=== PATIENT | female | born 1955 | race Caucasian/White ===

== ENCOUNTER 2021-02-04 07:49 | Outpatient (CLI) | payer OTHER, SELFPAY ==
--- NOTE | ~2021-02-04 | XR_ITS ---
EXAMINATION: XR abdomen/kub 1V INDICATION: Calcium kidney stone TECHNIQUE: Supine views of the abdomen were obtained on 2 radiographs. COMPARISON: None FINDINGS: There is a 1.6 cm stone projecting in the lower pole of the left kidney. No definite additi onal urolithiasis is identified. There are phleboliths of the left pelvis. Spinal fusion is noted L5- S1. The bowel gas pattern is normal. IMPRESSION: 1. Left nephrolithiasis. Reviewed, dictated and finalized at location A. IR ORDER CLERK IMPRESSION: 1. Left nephrolithiasis.
== END 2021-02-04 07:50 | disposition home or self-care (01) ==
PROVIDERS: PCP Family Medicine; Visit Provider Urology
DX: N20.0 Calculus of kidney (principal)
CPT/HCPCS: 74018

== ENCOUNTER 2021-02-05 10:45 | Outpatient (CLI) | payer OTHER, SELFPAY ==
[2021-02-05 12:08] LABS: INR 0.9; Prothrombin Time 11.7 Seconds (11.1-14.7)
[2021-02-05 12:09] LABS: Partial Thromboplastin Time 29.2 SECONDS (22.3-36.8)
== END 2021-02-05 10:46 | disposition home or self-care (01) ==
LOC: ANHSURGERY 10:50
PROVIDERS: PCP Family Medicine; Visit Provider Urology
DX: N20.0 Calculus of kidney (principal); Z01.812 Encounter for preprocedural laboratory examination
CPT/HCPCS: 36415; 85610; 85730

== ENCOUNTER 2021-02-08 03:32 | Day surgery (SDC) | payer OTHER, SELFPAY ==
[2021-02-04 15:52] VITALS: BMI 29.5
--- NOTE | 2021-02-04 15:59 | PC.NURSE ---
Report to the Outpatient Waiting Room, entrance under the green pavilion located off [facility], at time _0800 on date _02/08/21 . OR Time: __1000 . - You and your visitor will be asked a series of questions to screen for COVID 19 for your protection. - A mask is required within the hospital. - Only one visitor is allowed at this time. Patient visitors will be guided where to wait when not with patient. Preoperative COVID Testing Requirements: No COVID Test needed if: (proof is required; if not received patient will have Rapid Test prior to entry) - Patient has received COVID Vaccine at least 14 days prior to procedure date or - Patient has positive COVID test result within last 90 days of surgery date. COVID Test needed if above criteria is not met If not COVID vaccinated a COVID test must be conducted within 72 hours of surgery and patient is asked to isolate self from time of testing until procedure. You will go to the [facility] for your COVID testing. The [facility] site is located at the corner of [address] from [facility]. You will only be called if COVID results are positive and your surgeon may reschedule your elective surgery date. Patients may have clear liquids (water, carbonated beverages, clear teas, apple juice) until 3 hours prior to surgery with a maximum of 20 ounces. - No food from midnight until time of surgery - Infants may have breast milk until 4 hours before surgery, infant formula 6 hours prior to surgery. - Children will be allowed to drink immediately following surgery. If applicable, please bring a bottle or sippy cup to assist with drinking. Juice, water, soda, and popsicles are readily available. For infants on formula, please bring formula the day of surgery. Pacifiers are allowed. Take the following medications with a SIP of water the morning of surgery: ___PAIN PILL IF NEEDED Medications to discontinue per physician ___NONE Date to take last dose Please no make-up, nail nepali, hairspray, perfume, deodorant, or body powder the day of surgery. No jewelry (including any body piercings) or valuables the day of surgery, leave them at home. Please take a shower or bath the night before, or the morning of, surgery with an antibacterial soap. Wear comfortable, loose fitting clothing. Children are encouraged to wear pajamas. - Jewelry must be removed prior to entering the operating room. Rings and piercings that are not removed may be cut off. - The hospital will not accept responsibility for valuables. - Please leave all valuables, including medications, at home the day of surgery. If you are going home after surgery, a licensed charter coach driver must drive you home. - NO public transportation without another adult. - We recommend that an adult stay with you for 24 hours following discharge. - We also recommend that you do not drive, make important decision, drink alcoholic beverages, or take any drugs that were not prescribed by your health care provider for at least 24 hours after your discharge time. For Pediatric surgeries, we recommend two adults accompany the child home (only one inside the building at this time). Follow any additional instructions given to you from your surgeon. Telephone instructions given to __PATIENT and asked if any additional questions and then verbalized understanding. Patient advised to call surgeon office or pre surgery nurse liaison [phone] if any additional questions.
[2021-02-08] VITALS (9 sets, daily range): BP systolic 115–164; BP diastolic 65–97; PULSE 76–95; RESP 12–20; TEMP 36.1; O2SAT 95–100
--- NOTE | ~2021-02-08 | XR_ITS ---
EXAMINATION: XR abdomen/kub 1V INDICATION: Calcium kidney stone TECHNIQUE: Supine views of the abdomen were obtained on 2 radiographs. COMPARISON: 02/04/2021 FINDINGS: There is a 1.6 cm stone projecting in the left renal pelvis versus lower pole calyx. No def inite additional urolithiasis is identified. Multiple phleboliths are noted in the left pelvis. There are changes of spinal fusion at L5-S1. The bowel gas pattern is normal. IMPRESSION: 1. Stone in the left renal pelvis versus lower pole calyx. Reviewed, dictated and finalized at location A. ER CONTROL OPERATOR
--- NOTE | 2021-02-08 08:26 | WPDHPUPDATE1 ---
History and Physical Update Update Date/Time: 02/08/21 08:26 History and Physical has been reviewed, including an updated exam of the patient. There are NO changes in the patient's condition. Risks, benefits, and alternatives have been discussed and questions answered. Patient agrees to proceed with procedure. Proceed wtith left renal eswl , left retrograde, and stent placement.
[2021-02-08] MEDS: LACTATED RINGERS 1,000 ML 30 ML IV CONT (08:40)
[2021-02-08] MEDS: SCOPOLAMINE 1.5 MG PATCH TRANSDERM (08:41)
--- NOTE | 2021-02-08 08:51 | WPDANESEPPF ---
Anes - Initial Pre Proc Eval Procedure: Operation Date: 02/08/21 10:00 Proposed Procedures p Left Extracorporeal Shock Wave Lithotripsy, - Crow Sanders MD s Possible Ureteral Stent Placement - Crow Sanders MD Date/Time: 02/08/21 08:51 Surgeon: Crow Sanders MD Pre Op Diagnosis: left renal kidney stone Patient Data Age: 65 Gender: F Height: 1.55 m Weight: 69 kg Last Vital Signs Temp 36.1 C L 02/08/21 08:26 Pulse 90 02/08/21 08:26 Resp 18 02/08/21 08:26 BP 164/97 H 02/08/21 08:26 Pulse Ox 100 02/08/21 08:26 Allergies Allergy/AdvReac Type Severity Reaction Status Date / Time No Known Allergies Allergy Verified 02/08/21 08:25 Home Medications Medication Instructions Recorded Confirmed Type esomeprazole magnesium 40 mg PO DAILY 02/04/21 02/08/21 History hydrocodone-acetaminophen 2 tablet PO PRN PRN 02/04/21 02/08/21 History Patient hx anesthesia problems: none Family hx anesthesia problems: none Results Review: All pre-operative results and documents have been reviewed as part of the pre-operative evaluation. COUNT INCLUDES THE [facility] Past Medical History Medical History (Updated 02/08/21 @ 08:53 by Karlos Shafer MD) Back pain Chronic, continuous use of opioids GERD (gastroesophageal reflux disease) Osteoarthritis PONV (postoperative nausea and vomiting) Surgical History Surgical History (Updated 02/07/21 @ 13:04 by Paul Driscoll DO) History of hysterectomy Social History Social History Smoking status: Never smoker Living arrangements: with family Spiritual care concerns: No Anes - Eval Final PreProcedure Day of Procedure 02/08/21 08:51 Patient weight: overweight Heart: regular rate and rhythm Lungs: clear to auscultation and normal air movement Airway: Mallampati scale class II Neurological: alert and oriented Last oral intake: >/= 8 hours ASA classification: III Emergent: no Anesthetic plan: proceed Anesthesia type and monitoring: general LMA Results Review: All pre-operative results and documents have been reviewed as part of the pre-operative evaluation. Informed Consent: The patient's anesthetic plan and its attendant risks and benefits were discussed with the patient/family/POA. Questions were solicited and answers provided to the satisfaction of the patient/family/POA.
[2021-02-08] MEDS: ceFAZolin 2 GM/D5W 50 ML 2 GM/50 ML BAG IVPB (09:47)
[2021-02-08] MEDS: LIDOCAINE HCL 2% GEL UROJET 10 ML PKG MUCOUS MEM (10:06)
--- NOTE | 2021-02-08 10:25 | P.OP_ITS ---
Procedure Note - Detailed Date of Procedure 02/08/21 Pre-op Diagnosis left renal kidney stone Post-op Diagnosis same Procedure Performed Cystoscopy, left ureteral stent placement 4.8 [place] contour, left renal ESWL 1.6 cm stone Surgeon Crow Sanders MD Anesthesia general Description of Procedure Patient is taken to the operative suite correctly identified. Once anesthesia was obtained she was frog-legged and prepped and draped usual sterile. Sixteen [place] Irish flexible scope was inserted into the bladder. There is no tumors noted. The left orifice was cannulated with a guidewire. 4.8 [place] contour stent was then placed over the guidewire up into the left renal pelvis with the distal end coiled in the bladder. 2% viscous lidocaine was inserted into the urethra. Patient was then repositioned in the left renal stone was localized in both planes. Two thousand five hundred shocks given the stone appeared to be good fragmentation. Patient is taken recovery stable condition will follow up in 10- 14 days with a KUB. Drains Yes Packing No Pathology none sent Complications No immediate complications Condition stable Disposition PACU
--- NOTE | 2021-02-08 12:25 | SUR.PHASEII ---
1220- urine strain kit given to and explained to pt when discharge instructions done.
== END 2021-02-08 12:20 | disposition home or self-care (01) ==
PROVIDERS: PCP Family Medicine; Visit Provider Urology
PROC: (CPT 50590; principal; 2021-02-08 10:00)
PROC: (CPT 52352; 2021-02-08 10:00)
DX: N20.0 Calculus of kidney (principal); R10.12 Left upper quadrant pain; K21.9 Gastro-esophageal reflux disease without esophagitis
CPT/HCPCS: 52332; 50590; 36415; 74018; 85610; 85730; A9270; C1769; C2617; J0690; J1100; J1200; J2405; J2704; J3010; J7030; J7120; Q9966

== ENCOUNTER 2021-02-18 07:16 | Outpatient (CLI) | payer OTHER, SELFPAY ==
--- NOTE | ~2021-02-18 | XR_ITS ---
XR abdomen/kub 1V 02/18/2021 07:33 Indication: Renal stone Procedure: KUB Comparison: 02/08/2021 Findings: Bowel gas pattern is nonobstructive. There is a left internal ureteral stent in expected po sition. There are multiple stones in the lower pole of the left kidney. There are multiple stones alexis r the left UPJ and in the ureter. There are pelvic phleboliths. Bowel gas pattern is nonobstructive. There is surgical fusion at L5-S1. No acute osseous abnormality. Impression: 1: Left renal and ureteral stones with internal ureteral stent in expected position. Reviewed, dictated and finalized at location A. H GRADE TEACHER Impression: 1: Left renal and ureteral stones with internal ureteral stent in expected posi tion.
== END 2021-02-18 07:17 | disposition home or self-care (01) ==
LOC: ANHIMG 07:19
PROVIDERS: PCP Family Medicine; Visit Provider Urology
DX: N20.2 Calculus of kidney with calculus of ureter (principal)
CPT/HCPCS: 74018

== ENCOUNTER 2021-02-25 07:13 | Outpatient (CLI) | payer OTHER, SELFPAY ==
--- NOTE | ~2021-02-25 | XR_ITS ---
EXAMINATION: XR abdomen/kub 1V DATE: 02/25/2021 07:28 INDICATION: Calcium kidney stones TECHNIQUE: A supine view of the abdomen was obtained. COMPARISON: 02/18/2021 FINDINGS: Left internal ureteral stent with loops formed in expected locations of the upper pole calyx of the l eft kidney and in the bladder. Multiple small stone fragments measuring less than 203 mm in the calyc es of the lower pole of the left kidney with a few <2 mm stone fragments along the stent at the proxi mal most left ureter. Additional possible <2 mm stone fragment along the distal left ureter. Otherwis e unchanged pattern of round calcified phleboliths in the left hemipelvis. Normal bowel gas pattern. Bilateral vertical danica and pedicle screw fixation for posterior spinal fusion at L5-S1. Persistent shane cency surrounding the right-sided S1 pedicle screw which may be loose. IMPRESSION: 1. Changes consistent with recent lithotripsy with multiple small stone fragments clustered in a lowe r pole calyx of the left kidney, a few along side a left internal ureteral stent at the proximal left ureter and likely one at the distal left ureter. Reviewed, dictated and finalized at location H. ITURE TECHNICIAN IMPRESSION: 1. Changes consistent with recent lithotripsy with multiple small stone fragmen ts clustered in a lower pole calyx of the left kidney, a few along side a left internal ureteral stent at the proximal left ureter and likely one at the dista l left ureter.
== END 2021-02-25 07:14 | disposition home or self-care (01) ==
LOC: ANHIMG 07:16
PROVIDERS: PCP Family Medicine; Visit Provider Urology
DX: N20.0 Calculus of kidney (principal)
CPT/HCPCS: 74018